=== PATIENT | female | born 1950 | race Caucasian/White ===

== ENCOUNTER 2019-07-03 12:08 | Outpatient (CLI) | payer MEDICARE, OTHER, SELFPAY ==
--- NOTE | 2019-07-03 12:45 | US_ITS ---
WS: [id number] US transvaginal [id number] REASON FOR EXAM: POSTMENOPAUSAL BLEEDING FINDINGS: A prominent intramural leiomyomas seen along the anterior aspects of the mid uterus measure s 1.24 x 1.10 cm. The uterus measures 6.60 x 4.28 x 4.71 cm. The endometrium measures 0.48 cm Neither ovary is identified. US/US transvaginal [id number] IMPRESSION: Uterine fibroids
== END 2019-07-03 12:09 | disposition home or self-care (01) ==
PROVIDERS: Family Provider Physician Assistant Medical; Visit Provider Physician Assistant Medical
DX: N95.0 Postmenopausal bleeding (principal); D25.9 Leiomyoma of uterus, unspecified
CPT/HCPCS: 76830

== ENCOUNTER 2022-07-08 20:23 | Emergency (ER) | payer MEDICARE, OTHER, SELFPAY ==
[2022-07-08 20:25] VITALS: BP 129/81; PULSE 71; RESP 15; TEMP 36.5; O2SAT 95
[2022-07-08 20:36] VITALS: BP 139/84; PULSE 71; RESP 18; O2SAT 94
--- NOTE | 2022-07-08 20:39 | PC.NURSE ---
Pt states that she was walking out of her [employer] and fell into a hole and fell. Pt states that she did hit her head; left side of forehead has lump, bruising, and laceration. Left posterior forearm has skin tears. Pt states that her pain is at 4/10 when asked; has a headache. Pt A&Ox4, hand track walker equal, eyes PERRLA. Pt remains resting in bed at this time with spouse at bedside.
--- NOTE | 2022-07-08 20:44 | CTR_ITS ---
PROCEDURE INFORMATION: Exam: CT Head Without Contrast Exam date and time: 07/08/2022 8:55 PM Age: 71 years old Clinical indication: Injury or trauma; Fall; Blunt trauma (contusions or hematomas); Consciousness not specified; Patient HX: Bruising left side of forehead TECHNIQUE: Imaging protocol: Computed tomography of the head without contrast. Radiation optimization: All CT scans at this facility use at least one of these dose optimization techniques: automated exposure control; mA and/or kV adjustment per patient size (includes targeted exams where dose is matched to clinical indication); or iterative reconstruction. REPORTING DATA: Count of CT and Cardiac NM exams in prior 12 months: This patient has received 0 known CTs and 0 known cardiac nuclear medicine studies in the 12 months prior to the current study. COMPARISON: No relevant prior studies available. RADIATION DOSE METRICS: Total DLP (mGy-cm): 1076 FINDINGS: Brain: There is no acute intracranial hemorrhage or abnormal extra-axial fluid collection identified. There is no intracranial mass effect or shift of midline structures. The blackwood-white differentiation is preserved throughout. There is no sulcal effacement. The basilar cisterns are open. Cerebral ventricles: No hydrocephalus or ventricular effacement. Paranasal sinuses: There is mild sinus mucosal disease, with no air-fluid level identified. Mastoid air cells: There is no mastoid effusion detected. Orbital cavities: Bilateral proptosis is noted. Correlate with clinical information regarding thyroid function. Bones/joints: Benign hyperostosis frontalis is present. No calvarial fracture or destructive osseous lesions are seen. Soft tissues: Left frontal scalp injury. CT/CT head wo con* [id number] IMPRESSION: No acute intracranial pathology identified by CT.
--- NOTE | 2022-07-08 20:44 | CTR_ITS ---
PROCEDURE INFORMATION: Exam: CT Cervical Spine Without Contrast Exam date and time: 07/08/2022 8:55 PM Age: 71 years old Clinical indication: Injury or trauma; Fall; Blunt trauma TECHNIQUE: Imaging protocol: Computed tomography of the cervical spine without contrast. Radiation optimization: All CT scans at this facility use at least one of these dose optimization techniques: automated exposure control; mA and/or kV adjustment per patient size (includes targeted exams where dose is matched to clinical indication); or iterative reconstruction. REPORTING DATA: Count of CT and Cardiac NM exams in prior 12 months: This patient has received 0 known CTs and 0 known cardiac nuclear medicine studies in the 12 months prior to the current study. COMPARISON: No relevant prior studies available. RADIATION DOSE METRICS: Total DLP (mGy-cm): 139 FINDINGS: Bones/joints: No anterior wedging deformity is seen. No acute lucent fracture lines are visualized. The bones appear osteopenic. There is a large intraosseous hemangioma at T2. There are diffuse spondylitic changes of the cervical spine, most prominent at C5-C6. Cervical facet arthropathy is noted. Central canal stenosis is severe at C5-C6. Neural foraminal stenosis is seen at C2-C3, C3-C4, and C5-C6. Lungs: Lung apices are normal. Soft tissues: Unremarkable. CT/CT cervical spin wo con* [id number] IMPRESSION: 1. No acute cervical spinal injury demonstrated by CT. 2. Cervical spondylosis, with severe central canal stenosis at C5-C6.
--- NOTE | 2022-07-08 20:49 | ED_ITS ---
HPI - Fall General: Chief Complaint: Fall Stated Complaint: Fell Head Injury Time Seen by Provider: 07/08/22 20:35 Source: patient Mode of arrival: ambulatory Limitations: no limitations History of Present Illness: 71-year-old female who states that she was coming out of [employer] this evening and stepped in a pothole and slipped and fell. She states she did hit her head she has a contusion hematoma to her left forehead she has a mild headache and mild neck pain she rates a 2 out of 10 she does have a skin tear to her left arm but denies any pain in her arm she has been ambulatory since the event denies any other injuries. Associated symptoms-after fall: Reports headache(s); Denies abdominal pain, chest pain or neck pain Review of Systems Const: Denies: fever(s) or chills Eyes: Denies: eye discomfort ENMT: Denies: throat pain or dental pain Card: Denies: chest pain Resp: Denies: dyspnea GI: Denies: abdominal pain, nausea or vomiting Musc: Denies: neck pain or back pain Skin/Breast: Denies: rash Neuro: Reports: headache(s) PFSH ED PFSH: Social History (Updated 07/08/22 @ 20:51 by Chago Jones MD) Substance/Drug Use: never Course Vital Signs: Vital signs: Vital Signs Temperature 97.7 F 07/08/22 20:25 Pulse Rate 70 07/08/22 21:13 Respiratory Rate 18 07/08/22 21:13 Blood Pressure 127/79 07/08/22 21:13 Pulse Oximetry 93 07/08/22 21:13 Oxygen Delivery Me thod Room Air 07/08/22 21:13 MDM - Fall Medical Decision Making Patient presents here with a closed head injury CT of head and C-spine are both negative patient is stable for discharge she is to follow-up with PCP and return if worsening she understands agrees to plan. Lab Data Radiology Impressions Head CT 07/08/22 20:44 IMPRESSION: No acute intracranial pathology identified by CT. Discharge Plan Discharge Patient Disposition: Home Clinical Impression: Closed head injury Condition: Stable Discharge Orders: Discharge ED (Routine); Ordered 07/08/22 Ordered By: Chago Jones Referrals: Nikki Lynch [Primary Care Provider] - 1-3 days Discharge Diet: Advance as tolerated Discharge Activity: Resume usual activity Patient Instructions: Head Injury (ED) Coding Level of Care Code ED Key Account Manager for Richelle Gil
[2022-07-08 21:13] VITALS: BP 127/79; PULSE 70; RESP 18; O2SAT 93
[2022-07-08 21:29] VITALS: BP 137/69; PULSE 63; RESP 18; O2SAT 95
== END 2022-07-08 21:33 | disposition home or self-care (01) ==
PROVIDERS: Emergency Provider Emergency Medicine; PCP Registered Nurse
DX: S09.8XXA Other specified injuries of head, initial encounter (principal); W01.0XXA Fall on same level from slipping, tripping and stumbling without subsequent striking against object, initial encounter
CPT/HCPCS: 70450; 72125; 99284

== ENCOUNTER → 2022-08-10 07:54 | Outpatient (BNVA) | payer MEDICARE, OTHER, SELFPAY | PROVIDERS: PCP Registered Nurse; Referring Provider Registered Nurse; Visit Provider Specialist | DX: M19.012 Primary osteoarthritis, left shoulder (principal) | CPT/HCPCS: 73030; 99204 ==

== ENCOUNTER 2023-04-19 10:39 | Emergency (ER) | payer MEDICARE, OTHER, SELFPAY ==
[2023-04-19 10:54] VITALS: BP 166/94; PULSE 87; RESP 16; TEMP 36.7; O2SAT 92; BMI 31.1
--- NOTE | 2023-04-19 11:02 | CT_ITS ---
WS: [id number] CT CERVICAL TRAUMA TECHNIQUE: Noncontrast CT of the cervical spine with coronal and sagittal reformatted images. CLINICAL INFORMATION: trauma/fall COMPARISON: 07/08/2022 DLP: 2145.[address] scans at [facility] use at least one of these dose optimization techniques: automated e xposure control; mA and/or kV adjustment per patient size (includes targeted exams where dose is matc hed to clinical indication); or iterative reconstruction. FINDINGS: Straightening of the normal cervical lordosis. Moderate spondylitic changes. Disc osteophyte complex worse at C5-6 with severe central canal stenosis and flattening of the cervical cord. This is unchang ed since 07/08/2022. This can be followed up with cervical spine MRI. Normal craniocervical junction. Normal C1-C2 articulation. Dens is normal in appearance. Normal occip ital condyles. Normal C1 ring. No evidence of acute fracture or dislocation. Normal prevertebral soft tissues. Stable 1.2 cm RIGHT thyroid nodule. Mastoids air cells are well aerated. IMPRESSION: 1. No evidence of acute fracture or dislocation. 2. Disc osteophyte protrusion C5-6 with severe central canal stenosis is unchanged since 07/08/2022. Recommend follow-up with cervical spine MRI. 3. Moderate spondylitic changes.
--- NOTE | 2023-04-19 11:02 | CT_ITS ---
WS: [id number] CT FACIAL BONES TECHNIQUE: Noncontrast facial bones with coronal and sagittal reformatted images. CLINICAL INFORMATION: trauma/fall COMPARISON: None. DLP: 2145.[address] scans at [facility] use at least one of these dose optimization techniques: automated e xposure control; mA and/or kV adjustment per patient size (includes targeted exams where dose is matc hed to clinical indication); or iterative reconstruction. FINDINGS: Soft tissue edema overlying the LEFT inferior frontal calvarium and LEFT orbit. Distal nasal tuft fra cture. Distal bilateral nasal bone fractures with minimal displacement. Associated soft tissue edema. Lateral orbits are normal in appearance. Normal sphenoid wing. Normal zygoma. No evidence of mandibu lar fracture or dislocation. Normal pterygoid plates. IMPRESSION: 1. Soft tissue edema overlying the LEFT frontal calvarium and LEFT orbit. 2. Distal nasal tuft fracture with small bilateral nasal bone fractures distally minimally displaced . 3. No other visualized acute fractures. 4. Retention cyst in the LEFT sphenoid sinus.
--- NOTE | 2023-04-19 11:02 | CT_ITS ---
WS: [id number] CT HEAD TECHNIQUE: Noncontrast CT of the head obtained from the skullbase to the vertex. CLINICAL INFORMATION: trauma/fall COMPARISON: None. DLP: 2145.[address] scans at [facility] use at least one of these dose optimization techniques: automated e xposure control; mA and/or kV adjustment per patient size (includes targeted exams where dose is matc hed to clinical indication); or iterative reconstruction. FINDINGS: No evidence of intracranial hemorrhage or mass effect. Ventricular system and basal cisterns are garzon nt. Mild small vessel changes with mild parenchymal volume loss. No extra-axial fluid collections. No evidence of mass or mass effect. Normal blackwood-white differentiation. Intracranial vascular calcificat ion. Paranasal sinuses are well aerated. Retention cyst in the LEFT sphenoid sinus. Mastoid air cells are well aerated. Slightly comminuted fracture of the distal nasal tip. Minimally displaced bilateral albaro al bone fractures. Associated soft tissue edema. Soft tissue edema overlying the LEFT frontal calvari um and LEFT orbit. IMPRESSION: 1. No evidence of intracranial hemorrhage or mass effect. 2. Distal nasal tuft and bilateral minimally displaced nasal bone fractures 3. No acute intracranial findings.
--- NOTE | 2023-04-19 11:14 | W.ED.FALL ---
HPI - Fall General: Chief Complaint: Fall Stated Complaint: fall, head pains Time Seen by Provider: 04/19/23 11:00 History of Present Illness: 72-year-old female presents to the emergency department with complaints of a severe throbbing headache. She states she had an accidental fall yesterday at [employer] where she fell forward onto the concrete hitting her face. She states her eyes have continued to become black and blue she states that the left eye is swollen to where she is having difficulty seeing out of it. She states her headache is an allover headache. She has not taken anything for her headache at present. She states it is a 9 out of 10. She denies loss of consciousness at that time. She denies nausea or vomiting. She denies decreased sensation to the extremities or other injuries. She states she did have a significant bloody nose at the time of the fall. She takes no anticoagulations. Review of Systems General: Reports: 10 or more systems reviewed and unremarkable except in HPI and below Eyes: Reports: other (Bilateral ecchymosis) ENMT: Reports: epistaxis [facility] ED PFSH: Social History Substance/Drug Use: never Physical Exam Narrative: EXAM NARRATIVE: Constitutional: the patient appears well nourished and with normal development. Vital signs reviewed as documented. HENMT: External ears normal appearance without drainage. Nose without drainage, swelling, dried blood bilateral naris. Mucus membranes moist. Neck is supple, No jugular venous distension, trachea is midline, no appreciable carotid bruits. No lymphadenopathy. No meningeal signs. Flexion, extension and lateral rotation is without pain. No palpable crepitus, no palpable step-offs, normal alignment. Eyes: Pupils are equal, round, reactive to light and accommodation. No scleral icterus. Extra-ocular movement are intact. Bilateral periorbital ecchymosis noted left eye swelling more so to the left upper lid. Thorax is symmetrical and with equal rise and fall with respirations. Resp: Lungs are clear to auscultation. No wheezes, rales, crackles or ronchi at present. Cardio: Regular rate and rhythm. Positive S1, S2. No appreciable murmurs, rubs or gallops. GI: Abdominal exam reveals normal bowel sounds to all quadrants. No organomegaly. No obvious palpable masses noted. No hepatomegally appreciated. Soft, non-tender to palpation. Extremity: Extremities are non-edematous and both femoral and pedal pulses are 2+ and equal bilaterally. Moves all extremities well, sensation in all extremities. Neuro: Alert and oriented x4, person, place, time and situation. Cranial nerves II through XII are grossly intact, there is no focal neurological deficits that I can appreciate at present. Motor strength in the upper and lower extremities are equal and bilateral 5/5. Psych: Cooperative, calm, normal thought process, appropriate judgment. Skin: No lesions, rashes. No gross abnormalities noted. Back: Symmetrical, no obvious deformity, No CVA tenderness Course Reevaluation(s): Reevaluation #1: I discussed the CT scan of the head and cervical spine with the patient reevaluated her regarding her headache patient states she feels like her headache now is a 3 out of 10. I advised her regarding supportive care to include ice provided anticipatory guidance regarding what to expect with continued bruising and will provide her with pain medication, muscle relaxer and antinausea medication. Time: 12:16 Vital Signs: Vital signs: Vital Signs Temperature 98.1 F 04/19/23 10:54 Pulse Rate 78 04/19/23 11:35 Respiratory Rate 16 04/19/23 10:54 Blood Pressure 155/103 04/19/23 11:35 Pulse Oximetry 95 04/19/23 11:35 Oxygen Delivery Me thod Room Air 04/19/23 10:54 MDM - Fall Medical Decision Making Physical exam completed and documented I will obtain a CT scan of the facial bones as well as CT scan of the head and cervical spine for evaluation. Medical Records I reviewed the patient's medical records. All radiology interpretation(s) finalized by discharge Discharge Plan Discharge Patient Disposition: Home Clinical Impression: Accidental fall, Contusion of face, Headache Condition: Stable Prescriptions: New cyclobenzaprine 10 mg tablet 10 mg PO Q8H Qty: 14 0RF hydrocodone-acetaminophen 5-325 mg tablet 1 tab PO Q8H PRN (Reason: pain) Qty: 14 0RF ondansetron HCl 4 mg tablet 4 mg PO Q12H 5 Days Qty: 10 0RF No Action topiramate 200 mg capsule,extended release 24hr 200 mg PO DAILY verapamil 240 mg capsule,ext rel. pellets 24 hr 240 mg PO DAILY hydrochlorothiazide 25 mg tablet 25 mg PO DAILY omeprazole 20 mg capsule,delayed release(DR/EC) 20 mg PO DAILY metoprolol tartrate 100 mg tablet 100 mg PO BID lovastatin 10 mg tablet 10 mg PO DAILY potassium chloride 20 mEq tablet,ER particles/crystals 20 meq PO TID levetiracetam 750 mg tablet 750 mg PO BID oxybutynin chloride 5 mg tablet 5 mg PO BID Discharge Orders: Discharge ED (Routine); Ordered 04/19/23 Ordered By: Derek Vega Referrals: Nikki Lynch [Primary Care Provider] - Discharge Diet: Advance as tolerated Discharge Activity: Resume usual activity Patient Instructions: Opioid Safety, Pain Management Activity Restrictions/Additional Instructions: Activity Restrictions/Additional Instructions: Thank you for choosing [facility] for your healthcare needs today. Please realize that you were seen in the Emergency Department and that we are providing you with an emergency medical screening exam and this may not be a complete and all inclusive of all the testing and or medical work-up that you may need to determine your ailment or severity of your illness. It is very important that you follow-up as instructed with your Primary care provider or Specialist for additional evaluation and to discuss your medical treatment plan. You may return to the Emergency Department should you have concerns or if your condition changes or worsens in any way. Coding Level of Care Code ED Glycerine Plant Operator for Richelle Gil
[2023-04-19 11:35] VITALS: BP 155/103; PULSE 78; O2SAT 95
[2023-04-19] MEDS: acetaminophen 500 mg Tablet 1000 MG PO (11:53)
[2023-04-19 12:38] VITALS: BP 152/92; PULSE 80; O2SAT 95
== END 2023-04-19 12:39 | disposition home or self-care (01) ==
PROVIDERS: Emergency Provider Internal Medicine; PCP Registered Nurse
DX: R51.9 Headache, unspecified (principal); S00.83XA Contusion of other part of head, initial encounter; W19.XXXA Unspecified fall, initial encounter; Y92.22 Religious institution as the place of occurrence of the external cause
CPT/HCPCS: 70450; 70486; 72125; 99284

== ENCOUNTER → 2023-05-20 12:31 | Outpatient (BNVA) | payer MEDICARE, OTHER, SELFPAY | PROVIDERS: PCP Registered Nurse; Visit Provider Otolaryngology | DX: S02.2XXA Fracture of nasal bones, initial encounter for closed fracture (principal) | CPT/HCPCS: 99203 ==